=== PATIENT | male | born 1995 | race Caucasian/White ===

== ENCOUNTER 2017-12-16 15:35 | Emergency (ER) | payer OTHER ==
[2017-12-16 15:39] VITALS: RESP 18
[2017-12-16] MEDS ORDERED: ONDANSETRON ODT 4 MG TAB PO STA (17:14)
--- NOTE | 2017-12-16 18:06 | ED ---
General Adult HPI - General Chief complaint: Chest Pain Stated complaint: chest pain Time Seen by Provider: 12/16/17 17:13 Source: patient, RN notes reviewed, old records reviewed Mode of arrival: ambulatory Limitations: no limitations - History of Present Illness Initial comments: This is a 42-year-old male the ER for evasive chest pain. Patient has no medical history no significant family history. Patient states he has chest pain is substernal, started today has been episodic, worsening takes a deep breath, no significant worsening symptoms palpate his chest. No significant shortness of breath no diaphoresis. Patient is a smoker, no difficulty breathing again no mild cough. Patient had a little bit of nausea, but a few a today without difficulty - Related Data Home Medications Medication Instructions Recorded Confirmed No Known Home Medications 12/16/17 12/16/17 Allergies Allergy/AdvReac Type Severity Reaction Status Date / Time surgical steel Allergy Rash/Hives Uncoded 12/16/17 17:15 Review of Systems ROS Statement: Those systems with pertinent positive or pertinent negative responses have been documented in the HPI. ROS Other: All systems not noted in ROS Statement are negative. Past Medical History Past Medical History: No Reported History History of Any Multi-Drug Resistant Organisms: None Reported Past Surgical History: No Surgical Hx Reported Past Psychological History: No Psychological Hx Reported Smoking Status: Current every day smoker Past Alcohol Use History: Occasional Past Drug Use History: None Reported General Exam Limitations: no limitations General appearance: alert, in no apparent distress Head exam: Present: atraumatic, normocephalic, normal inspection Eye exam: Present: normal appearance, PERRL, EOMI. Absent: scleral icterus, conjunctival injection, periorbital swelling ENT exam: Present: normal exam, mucous membranes moist Neck exam: Present: normal inspection. Absent: tenderness, meningismus, lymphadenopathy Respiratory exam: Present: normal lung sounds bilaterally. Absent: respiratory distress, wheezes, rales, rhonchi, stridor Cardiovascular Exam: Present: regular rate, normal rhythm, normal heart sounds. Absent: systolic murmur, diastolic murmur, rubs, gallop, clicks GI/Abdominal exam: Present: soft, normal bowel sounds. Absent: distended, tenderness, guarding, rebound, rigid Extremities exam: Present: normal inspection, full ROM, normal capillary refill. Absent: tenderness, pedal edema, joint swelling, calf tenderness Back exam: Present: normal inspection Neurological exam: Present: alert, oriented X3, CN II-XII intact Psychiatric exam: Present: normal affect, normal mood Skin exam: Present: warm, dry, intact, normal color. Absent: rash Course Vital Signs 12/16/17 15:37 Temperature 98.4 F Pulse Rate 76 Respiratory 18 Rate Blood Pressure 134/77 O2 Sat by Pulse 98 Oximetry EKG Findings - EKG Comments: EKG Findings:: EKG shows sinus rhythm rate of 70, IA 160, QRS 90, QTc 412 Medical Decision Making - Medical Decision Making 22 male the ER for evaluation of chest pain. Nonspecific chest pain EKG chest x -ray negative. Patient can be discharged home, no acute distress vital signs are normal and stable - Radiology Data Radiology results: report reviewed (Chest x-rays negative for acute disease), image reviewed Disposition Clinical Impression: Chest pain Disposition: HOME SELF-CARE Condition: Good Instructions: Chest Pain (ED) Is patient prescribed a controlled substance at d/c from ED?: No Referrals: None,Stated [Primary Care Provider] - 1-2 days
--- NOTE | 2017-12-16 18:18 | XR ---
EXAMINATION TYPE: XR chest 2V DATE OF EXAM: 12/16/2017 COMPARISON: May 21, 2013 HISTORY: Chest pain TECHNIQUE: Frontal and lateral views of the chest are obtained. FINDINGS: Heart and mediastinum are normal. Lungs are clear. Diaphragm is normal. Bony thorax appear s normal. IMPRESSION: Normal chest. No change.
[2017-12-16 18:59] VITALS: BP 120/53; PULSE 61; TEMP 98.7
== END 2017-12-16 18:59 | disposition home or self-care (01) ==
LOC: EC 15:35
DX: R07.2 Precordial pain (principal); R11.0 Nausea; F17.200 Nicotine dependence, unspecified, uncomplicated; Z91.048 Other nonmedicinal substance allergy status
CPT/HCPCS: 71046; 93005; 99285

== ENCOUNTER 2018-06-15 12:35 | Emergency (ER) | payer OTHER ==
[2018-06-15 13:56] VITALS: BP 114/68; PULSE 56; RESP 18; TEMP 98.3
--- NOTE | 2018-06-15 15:11 | ED ---
Recheck HPI - General Chief Complaint: Recheck/Abnormal Lab/Rx Stated Complaint: Wanting a blood test Time Seen by Provider: 06/15/18 15:01 Source: patient, RN notes reviewed, old records reviewed Mode of arrival: ambulatory Limitations: no limitations - History of Present Illness Initial Comments: This is a 22-year-old male the ER for evaluation. They presents for evaluation regards to possible STI exposure. Patient otherwise denies drug or alcohol abuse. No IV drug abuse. No anal sex. MD Complaint: other (concern for Hepatitis Exposure) -: unknown Initial Visit For: other (none) Returns Today for: other (concern for lab test) Symptoms Since Prior Visit: no new symptoms Associated Symptoms: none - Related Data Home Medications Medication Instructions Recorded Confirmed No Known Home Medications 12/16/17 12/16/17 Allergies Allergy/AdvReac Type Severity Reaction Status Date / Time No Known Allergies Allergy Verified 06/15/18 13:53 Review of Systems ROS Statement: Those systems with pertinent positive or pertinent negative responses have been documented in the HPI. ROS Other: All systems not noted in ROS Statement are negative. Past Medical History Past Medical History: No Reported History History of Any Multi-Drug Resistant Organisms: None Reported Past Surgical History: No Surgical Hx Reported Past Psychological History: No Psychological Hx Reported Smoking Status: Current every day smoker Past Alcohol Use History: Occasional Past Drug Use History: None Reported General Exam Limitations: no limitations General appearance: alert, in no apparent distress Head exam: Present: atraumatic, normocephalic, normal inspection Eye exam: Present: normal appearance, PERRL, EOMI. Absent: scleral icterus, conjunctival injection, periorbital swelling ENT exam: Present: normal exam, mucous membranes moist Neck exam: Present: normal inspection. Absent: tenderness, meningismus, lymphadenopathy Respiratory exam: Present: normal lung sounds bilaterally. Absent: respiratory distress, wheezes, rales, rhonchi, stridor Cardiovascular Exam: Present: regular rate, normal rhythm, normal heart sounds. Absent: systolic murmur, diastolic murmur, rubs, gallop, clicks GI/Abdominal exam: Present: soft, normal bowel sounds. Absent: distended, tenderness, guarding, rebound, rigid Extremities exam: Present: normal inspection, full ROM, normal capillary refill. Absent: tenderness, pedal edema, joint swelling, calf tenderness Back exam: Present: normal inspection Neurological exam: Present: alert, oriented X3, CN II-XII intact Psychiatric exam: Present: normal affect, normal mood Skin exam: Present: warm, dry, intact, normal color. Absent: rash Course Vital Signs 06/15/18 13:53 Temperature 98.3 F Pulse Rate 56 L Respiratory 18 Rate Blood Pressure 114/68 O2 Sat by Pulse 97 Oximetry - Reevaluation(s) Reevaluation #1: 06/15/18 15:09 Medical record is reviewed noncontributory Reevaluation #2: 06/15/18 15:10 Spoke with patient at length, patient understands possibilities and treatment plan. Medical Decision Making - Medical Decision Making 22-year-old male for STD STI exposure. Patient will have extensive STI evaluation and can be discharged home awaiting follow-up Disposition Clinical Impression: STD exposure Disposition: HOME SELF-CARE Condition: Good Instructions: Hepatitis C (ED) Is patient prescribed a controlled substance at d/c from ED?: No Referrals: None,Stated [Primary Care Provider] - 1-2 days
[2018-06-15 16:29] LABS: Appearance,Urine Clear (Clear); Bilirubin,Urine Negative (Negative); Blood,Urine Negative (Negative); Color,Urine Yellow; Glucose,Urine (UA) Negative (Negative); Ketones,Urine Negative (Negative); Leukocyte Esterase,Urine Moderate (Negative); Mucus,Urine Few /hpf; Nitrite,Urine Negative (Negative); PH, Urine 6.5 (5.0-8.0); Protein,Urine 1+ (Negative); RBC,Urine 3 /hpf (0-5); Specific Gravity,Urine 1.025 (1.001-1.035); Squamous Epithelial Cell,Urine <1 /hpf (0-4); WBC,Urine 8 /hpf (0-5)
[2018-06-15 16:31] LABS: Hepatitis A AB IgM Index 0.01; Hepatitis A Antibody IgM NEGATIVE
[2018-06-16 03:55] LABS: Hepatitis B Core IgM Non-Reactive (Non-Reactive)
[2018-06-17 13:20] LABS: C. trachomatis,PCR Negative (Neg,Equiv); Chlamydia trachomatis Source Urine; N. gonorrhoeae,PCR Negative (Neg,Equiv); Neisseria Source Urine
== END 2018-06-15 16:12 | disposition home or self-care (01) ==
LOC: EC 12:35
DX: Z20.2 Contact with and (suspected) exposure to infections with a predominantly sexual mode of transmission (principal); Z20.5 Contact with and (suspected) exposure to viral hepatitis; F17.200 Nicotine dependence, unspecified, uncomplicated
CPT/HCPCS: 36415; 80074; 81001; 87086; 87491; 87591; 99283

== ENCOUNTER 2018-07-23 15:41 | Emergency (ER) | payer OTHER ==
[2018-07-23 15:45] VITALS: BP 109/61; PULSE 96; RESP 18; TEMP 98.3
[2018-07-23] MEDS ORDERED: KETOROLAC 60 MG/2 ML VIAL IM STA (16:10)
--- NOTE | 2018-07-23 16:19 | ED ---
General Adult HPI - General Chief complaint: Back Pain/Injury Stated complaint: Back pain Time Seen by Provider: 07/23/18 15:48 Source: patient, RN notes reviewed, old records reviewed Mode of arrival: ambulatory Limitations: no limitations - History of Present Illness Initial comments: 22-year-old male patient passed no history of chronic lumbar back pain presents ED with left paralumbar back pain. Patient states that he was lifting heavy trash at work yesterday, this morning with left paralumbar back pain. She denies any falls or trauma. Patient states that it feels muscular skeletal. Patient states he has had this multiple times in the past before. Patient denies any other symptoms. Patient denies loss of bowel or bladder control, numbness tingling, saddle anesthesia, lower extremity weakness, fever chills, IV drug use. Patient additionally denies chest pain shortness breath abdominal pain. Systemic: Pt denies fatigue, fever/chills, rash. Pt denies weakness, night sweats, weight loss. Neuro: Pt denies headache, visual disturbances, syncope or pre-syncope. HEENT: Pt denies ocular discharge or irritation, otalgia, rhinorrhea, pharyngitis or notable lymphadenopathy. Cardiopulmonary: Pt denies chest pain, SOB, heart palpitations, dyspnea on exertion. Abdominal/GI: Pt denies abdominal pain, n/v/d. : Pt denies dysuria, burning w/ urination, frequency/urgency. Denies new onset urinary or bowel incontinence. MSK: Pt denies loss of strength or function in extremities. Neuro: Pt denies new onset weakness, paresthesias. - Related Data Previous Rx's Medication Instructions Recorded Ibuprofen [Motrin] 600 mg PO Q8HR PRN #30 tab 07/13/18 Cyclobenzaprine [Flexeril] 10 mg PO TID #20 tab 07/23/18 Ibuprofen [Motrin] 600 mg PO Q6HR PRN #40 day 07/23/18 Allergies Allergy/AdvReac Type Severity Reaction Status Date / Time No Known Allergies Allergy Verified 07/23/18 15:45 Review of Systems ROS Statement: Those systems with pertinent positive or pertinent negative responses have been documented in the HPI. ROS Other: All systems not noted in ROS Statement are negative. Past Medical History Past Medical History: No Reported History History of Any Multi-Drug Resistant Organisms: None Reported Past Surgical History: No Surgical Hx Reported Past Psychological History: No Psychological Hx Reported Smoking Status: Current every day smoker Past Alcohol Use History: Occasional Past Drug Use History: None Reported General Exam - General Exam Comments Initial Comments: Constitutional: NAD, AOX3, Pt has pleasant affect. HEENT: NC/AT, trachea midline, neck supple, no lymphadenopathy. Posterior pharynx non erythematous, without exudates. External ears appear normal, without discharge. Mucous membranes moist. Eyes PERRLA, EOM intact. There is no scleral icterus. No pallor noted. Cardiopulmonary: RRR, no murmurs, rubs or gallops, no JVD noted. Lungs CTAB in anterior and posterior conrad. No peripheral edema. Abdominal exam: Abdomen soft and non-distended. Abdomen non-tender to palpation in all 4 quadrants. Bowel sounds active in LLQ. No hepatosplenomegaly. No ecchymosis Neuro: CN II-XII grossly intact. No nuchal rigidity. MSK: Left paralumbar spine mildly tender to palpation. Left straight leg raise positive. No midline cervical thoracic or lumbar tenderness to palpation. Psoas and quadriceps strength 5 out of 5 bilaterally. Patellar and Achilles reflex 2 out of 4 bilaterally. Distal pulses intact. No posterior calf tenderness bilaterally, homans sign negative bilaterally. Posterior tibialis and radial pulse +2 bilaterally. Sensation intact in upper and lower extremities. Full active ROM in upper and lower extremities, 5/5 stregnth. Limitations: no limitations Course Vital Signs 07/23/18 15:42 Temperature 98.3 F Pulse Rate 96 Respiratory 18 Rate Blood Pressure 109/61 O2 Sat by Pulse 100 Oximetry Medical Decision Making - Medical Decision Making 22-year-old male patient presents to ED with exacerbation of chronic lumbar back pain after lifting heavy trash yesterday. Patient denies any falls or trauma. Patient vital signs stable. Physical exam: Left paralumbar spine mildly tender to palpation. Left straight leg raise positive. No midline cervical thoracic or lumbar tenderness to palpation. Psoas and quadriceps strength 5 out of 5 bilaterally. Patellar and Achilles reflex 2 out of 4 bilaterally. Distal pulses intact. No posterior calf tenderness bilaterally, homans sign negative bilaterally. Posterior tibialis and radial pulse +2 bilaterally. Sensation intact in upper and lower extremities. Full active ROM in upper and lower extremities, 5/5 stregnth. Shared decision making patient, pt to be treated symptomatically, imaging not indicated. Pt administered Toradol and ED. Patient to be discharged with muscle relaxers and ibuprofen. Patient to follow with primary care provider for continued evaluation of lumbar back pain. Case discussed in depth with Dr. Mariee. Patient to return to ED if new signs or symptoms develop or if condition worsens in any way. Disposition Clinical Impression: Lumbar back pain Disposition: HOME SELF-CARE Condition: Stable Instructions (If sedation given, give patient instructions): Chronic Back Pain (ED), Acute Low Back Pain (ED) Additional Instructions: Patient to adhere to previously discussed treatment plan and will take medication(s) as directed. Patient to follow up with PCP in 1-2 days. Patient to return to ED if symptoms do not improve. Prescriptions: Cyclobenzaprine [Flexeril] 10 mg PO TID #20 tab Ibuprofen [Motrin] 600 mg PO Q6HR PRN #40 day PRN Reason: Pain Is patient prescribed a controlled substance at d/c from ED?: No Referrals: None,Stated [Primary Care Provider] - 1-2 days Time of Disposition: 16:19
== END 2018-07-23 16:35 | disposition home or self-care (01) ==
LOC: EC 15:41
DX: M54.5 Low back pain (principal); F17.200 Nicotine dependence, unspecified, uncomplicated
CPT/HCPCS: 99283; 96372; J1885

== ENCOUNTER 2018-07-30 17:23 | Emergency (ER) | payer OTHER ==
[2018-07-30 17:34] VITALS: RESP 18
[2018-07-30] MEDS ORDERED: KETOROLAC 30 MG/ML 1 ML VIAL IVP STA (18:11)
[2018-07-30] MEDS ORDERED: ONDANSETRON 4 MG/2 ML VIAL IVP STA (18:11)
[2018-07-30] MEDS ORDERED: SODIUM CHLORIDE 0.9% 1,000 ML IV STA (18:11)
--- NOTE | 2018-07-30 18:14 | ED ---
Abdominal Pain HPI - General Chief Complaint: Abdominal Pain Stated Complaint: ABDOMINAL PAIN Time Seen by Provider: 07/30/18 18:01 Source: patient Mode of arrival: wheelchair Limitations: no limitations - History of Present Illness Initial Comments: 22-year-old male patient presents to the emergency department today for evaluation of right lower quadrant abdominal pain. Patient states that about a half hour ago he was walking on a sidewalk when he had a sudden intense pain to the right lower quadrant that made him want to collapse. Patient states the pain has persisted and it's been since its onset. States he is feeling nauseated with this. Denies any radiation of the pain to his back. Denies any testicular pain. Denies any constipation or diarrhea. States had a normal bowel movement this morning. Denies any fevers or chills. Denies any history of abdominal surgeries. Denies any significant past medical history other than some chronic low back pain. Patient denies any recent rash, shortness breath, chest pain, numbness, tingling, dizziness, weakness, headache, visual changes, or any other complaints. - Related Data Previous Rx's Medication Instructions Recorded Ibuprofen [Motrin] 600 mg PO Q6HR PRN #40 day 07/23/18 Allergies Allergy/AdvReac Type Severity Reaction Status Date / Time No Known Allergies Allergy Verified 07/30/18 17:43 Review of Systems ROS Statement: Those systems with pertinent positive or pertinent negative responses have been documented in the HPI. ROS Other: All systems not noted in ROS Statement are negative. Past Medical History Past Medical History: No Reported History History of Any Multi-Drug Resistant Organisms: None Reported Past Surgical History: No Surgical Hx Reported Past Psychological History: No Psychological Hx Reported Smoking Status: Current every day smoker Past Alcohol Use History: Occasional Past Drug Use History: None Reported General Exam Limitations: no limitations General appearance: alert, in no apparent distress, other (This is a well- developed, thin appearing adult male patient in no acute distress. Vital signs upon presentation are temperature 98.3F, pulse 73, respirations 18, blood pressure 122/77, pulse ox 97% on room air.) Eye exam: Present: normal appearance, PERRL, EOMI. Absent: scleral icterus, conjunctival injection, periorbital swelling ENT exam: Present: normal exam, normal oropharynx, mucous membranes moist Respiratory exam: Present: normal lung sounds bilaterally. Absent: respiratory distress, wheezes, rales, rhonchi, stridor Cardiovascular Exam: Present: regular rate, normal rhythm, normal heart sounds. Absent: systolic murmur, diastolic murmur, rubs, gallop, clicks GI/Abdominal exam: Present: soft, tenderness (Right lower quadrant and right upper quadrant tenderness), normal bowel sounds. Absent: distended, guarding, rebound, rigid Neurological exam: Present: alert, oriented X3, CN II-XII intact Psychiatric exam: Present: normal affect, normal mood Skin exam: Present: warm, dry, intact, normal color. Absent: rash Course Vital Signs 07/30/18 07/30/18 17:30 19:34 Temperature 98.3 F Pulse Rate 73 Respiratory 18 18 Rate Blood Pressure 122/77 O2 Sat by Pulse 97 Oximetry Medical Decision Making - Medical Decision Making 22-year-old male patient presents to the emergency department today for evaluation of right lower quadrant abdominal pain. Physical examination did reveal right lower quadrant tenderness and right upper quadrant tenderness. He is afebrile, vital signs stable. Labs are normal. CT abdomen and pelvis was obtained to rule out appendicitis, showed no evidence of acute intra-abdominal process. Appendix is normal. Patient be discharged home at this time to follow -up with his primary care physician for further evaluation. Return parameters were discussed in detail. He verbalizes understanding and agrees with this plan. - Lab Data Result diagrams: 07/30/18 18:25 07/30/18 18:25 Lab Results 07/30/18 07/30/18 07/30/18 Range/Units 18:25 18:25 18:25 WBC 10.4 (3.8-10.6) k/uL RBC 4.72 (4.30-5.90) m/uL Hgb 15.0 (13.0-17.5) gm/dL Hct 44.2 (39.0-53.0) % MCV 93.6 (80.0-100.0) fL MCH 31.8 (25.0-35.0) pg MCHC 34.0 (31.0-37.0) g/dL RDW 13.3 (11.5-15.5) % Plt Count 239 (150-450) k/uL Neutrophils % 70 % Lymphocytes % 17 % Monocytes % 7 % Eosinophils % 4 % Basophils % 1 % Neutrophils # 7.3 (1.3-7.7) k/uL Lymphocytes # 1.7 (1.0-4.8) k/uL Monocytes # 0.7 (0-1.0) k/uL Eosinophils # 0.4 (0-0.7) k/uL Basophils # 0.1 (0-0.2) k/uL Sodium 142 (137-145) mmol/L Potassium 4.2 (3.5-5.1) mmol/L Chloride 105 (98-107) mmol/L Carbon Dioxide 27 (22-30) mmol/L Anion Gap 10 mmol/L BUN 14 (9-20) mg/dL Creatinine 0.84 (0.66-1.25) mg/dL Est GFR (CKD-EPI)AfAm >90 (>60 ml/min/1.73 sqM) Est GFR (CKD-EPI)NonAf >90 (>60 ml/min/1.73 sqM) Glucose 121 H (74-99) mg/dL Calcium 9.9 (8.4-10.2) mg/dL Total Bilirubin 0.8 (0.2-1.3) mg/dL AST 24 (17-59) U/L ALT 32 (21-72) U/L Alkaline Phosphatase 50 (38-126) U/L Total Protein 7.7 (6.3-8.2) g/dL Albumin 5.0 (3.5-5.0) g/dL Amylase 73 (30-110) U/L Lipase 85 (23-300) U/L Urine Color Light Yellow Urine Appearance Clear (Clear) Urine pH 6.5 (5.0-8.0) Ur Specific [place] 1.008 (1.001-1.035) Urine Protein Negative (Negative) Urine Glucose (UA) Negative (Negative) Urine Ketones Negative (Negative) Urine Blood Negative (Negative) Urine Nitrite Negative (Negative) Urine Bilirubin Negative (Negative) Urine Urobilinogen <2.0 (<2.0) mg/dL Ur Leukocyte Esterase Negative (Negative) - Radiology Data Radiology results: report reviewed, image reviewed CT abdomen and pelvis was obtained with contrast. Report was reviewed in its entirety. Impression by Dr. Lazo and shows normal CT abdomen and pelvis. Appendix is normal. Disposition Clinical Impression: Abdominal pain Disposition: HOME SELF-CARE Condition: Good Instructions (If sedation given, give patient instructions): Abdominal Pain (ED ) Additional Instructions: Follow-up with the primary care physician for recheck in 1-2 days. Return to the emergency department immediately for any new, worsening, or concerning symptoms. Is patient prescribed a controlled substance at d/c from ED?: No Referrals: None,Stated [Primary Care Provider] - 1-2 days Time of Disposition: 21:07
[2018-07-30 18:47] LABS: Basophils # (A) 0.1 k/uL (0-0.2); Basophils % (A) 1 %; Eosinophils # (A) 0.4 k/uL (0-0.7); Eosinophils % (A) 4 %; HCT 44.2 % (39.0-53.0); Lymphocytes # (A) 1.7 k/uL (1.0-4.8); Lymphocytes % (A) 17 %; MCH 31.8 pg (25.0-35.0); MCV 93.6 fL (80.0-100.0); Mean Platelet Volume 7.4; Monocytes # (A) 0.7 k/uL (0-1.0); Monocytes % (A) 7 %; Neutrophils # (A) 7.3 k/uL (1.3-7.7); Neutrophils % (A) 70 %; Platelet Count 239 k/uL (150-450); RBC 4.72 m/uL (4.30-5.90); RDW 13.3 % (11.5-15.5); WBC 10.4 k/uL (3.8-10.6)
[2018-07-30 18:49] LABS: Appearance,Urine Clear (Clear); Bilirubin,Urine Negative (Negative); Blood,Urine Negative (Negative); Color,Urine Light Yellow; Glucose,Urine (UA) Negative (Negative); Ketones,Urine Negative (Negative); Leukocyte Esterase,Urine Negative (Negative); Nitrite,Urine Negative (Negative); PH, Urine 6.5 (5.0-8.0); Protein,Urine Negative (Negative); Specific Gravity,Urine 1.008 (1.001-1.035); Urobilinogen,Urine <2.0 mg/dL (<2.0)
[2018-07-30 18:57] LABS: ALT 32 U/L (21-72); AST 24 U/L (17-59); Alkaline Phosphatase 50 U/L (38-126); Amylase 73 U/L (30-110); Anion Gap 10 mmol/L; Blood Urea Nitrogen 14 mg/dL (9-20); Calcium 9.9 mg/dL (8.4-10.2); Carbon Dioxide 27 mmol/L (22-30); Chloride 105 mmol/L (98-107); Glucose 121 mg/dL (74-99); Lipase 85 U/L (23-300); Potassium 4.2 mmol/L (3.5-5.1); Sodium 142 mmol/L (137-145); Total Bilirubin 0.8 mg/dL (0.2-1.3); Total Protein 7.7 g/dL (6.3-8.2)
--- NOTE | 2018-07-30 20:44 | CT ---
EXAMINATION TYPE: CT abdomen pelvis w con DATE OF EXAM: 07/30/2018 COMPARISON: None INDICATION: Right lower quadrant abdominal pain. DLP: 533.3 mGycm, Automated exposure control for dose reduction was used. CONTRAST: 100ml mL of Isovue 300. Study performed without Oral Contrast TECHNIQUE: Axial images were obtained from above the diaphragm to the pubic rami in the axial plane a t 5 mm thick sections. Reconstructed images are reviewed on the computer in the coronal plane. FINDINGS: Limited CT sections are obtained the lung bases. The lung bases are clear. CT ABDOMEN: Liver: Normal Spleen: Normal Pancreas: Normal Adrenal glands: The adrenal glands are normal. Gallbladder: Normal Kidneys: No masses are evident. No hydronephrosis is present. No cysts are present. Delayed images were obtained through the kidneys, which remain unremarkable. Aorta: None Inferior vena cava: Normal. CT PELVIS: Loops of bowel within the abdomen and pelvis are normal. There are loops of bowel which are incom pletely distended or lack oral contrast limiting their evaluation. Appendix: Normal as visualized. No suspicious inflammatory changes are evident. Urinary bladder: Normal. Genitourinary structures: Prostate is normal Osseous structures: No suspicious lytic or sclerotic lesions. IMPRESSIONS: 1. Normal CT abdomen pelvis. 2. Appendix is normal.
[2018-07-30 21:21] VITALS: BP 106/63; PULSE 58; TEMP 98.5
== END 2018-07-30 21:15 | disposition home or self-care (01) ==
LOC: EC 17:23
DX: R10.31 Right lower quadrant pain (principal); R10.813 Right lower quadrant abdominal tenderness; R10.811 Right upper quadrant abdominal tenderness; M54.5 Low back pain; G89.29 Other chronic pain; F17.200 Nicotine dependence, unspecified, uncomplicated
CPT/HCPCS: 36415; 80053; 82150; 83690; 85025; 81003; 74177; 99284; 96374; 96375; 96361; J2405; J1885; Q9967

== ENCOUNTER 2019-01-14 17:37 | Emergency (ER) | payer OTHER ==
[2019-01-14 17:40] VITALS: BP 134/62; PULSE 51; RESP 18; TEMP 98.7
--- NOTE | 2019-01-14 18:34 | ED ---
General Adult HPI - General Chief complaint: Abdominal Pain Stated complaint: Chest pain, shoulder pain Time Seen by Provider: 01/14/19 18:06 Source: EMS, RN notes reviewed, old records reviewed Mode of arrival: EMS Limitations: no limitations - History of Present Illness Initial comments: 23-year-old male patient, no pertinent past medical history presents to ED with chief complaint of left lateral rib pain and left shoulder pain. Patient reports this began today at approximately 3:30 PM and lasted approximately one hour. Patient denies any recent falls or trauma. 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 Denies any shortness of breath. Patient reports that the area is tender to palpation. Patient denies any personal cardiac history. Denies any recent travel, use of exogenous hormones, leg pain, recent surgery, active cancer. Patient reports that he is currently asymptomatic at this time. Denies other complaints. Denies any associated symptoms including diaphoresis. Systemic: Pt denies fatigue, fever/chills, rash. Pt denies weakness, night sweats, weight loss. Neuro: Pt denies headache, visual disturbances, syncope or pre-syncope. HEENT: Pt denies ocular discharge or irritation, otalgia, rhinorrhea, pharyngitis or notable lymphadenopathy. Cardiopulmonary: Pt denies SOB, heart palpitations, dyspnea on exertion. Abdominal/GI: Pt denies abdominal pain, n/v/d. : Pt denies dysuria, burning w/ urination, frequency/urgency. Denies new onset urinary or bowel incontinence. MSK: Pt denies myalgia, loss of strength or function in extremities. Neuro: Pt denies new onset weakness, paresthesias. - Related Data Previous Rx's Medication Instructions Recorded Ibuprofen [Motrin] 600 mg PO Q6HR PRN #40 day 07/23/18 Allergies Allergy/AdvReac Type Severity Reaction Status Date / Time No Known Allergies Allergy Verified 01/14/19 17:40 Review of Systems ROS Statement: Those systems with pertinent positive or pertinent negative responses have been documented in the HPI. ROS Other: All systems not noted in ROS Statement are negative. Past Medical History Past Medical History: No Reported History History of Any Multi-Drug Resistant Organisms: None Reported Past Surgical History: No Surgical Hx Reported Past Psychological History: No Psychological Hx Reported Smoking Status: Current every day smoker Past Alcohol Use History: Occasional Past Drug Use History: None Reported General Exam - General Exam Comments Initial Comments: Constitutional: NAD, AOX3, Pt has pleasant affect. HEENT: NC/AT, trachea midline, neck supple, no lymphadenopathy. Posterior pharynx non erythematous, without exudates. External ears appear normal, without discharge. Mucous membranes moist. Eyes PERRLA, EOM intact. There is no scleral icterus. No pallor noted. Cardiopulmonary: RRR, no murmurs, rubs or gallops, no JVD noted. Lungs CTAB in anterior and posterior conrad. No peripheral edema. Chest pain reproducible upon palpation. Abdominal exam: Abdomen soft and non-distended. Abdomen non-tender to palpation in all 4 quadrants. Bowel sounds active in LLQ. No hepatosplenomegaly. No ecchymosis Neuro: CN II-XII grossly intact. No nuchal rigidity. No raccon eyes, no sanchez sign, no hemotympanum. No cervical spinal tenderness. MSK: No posterior calf tenderness bilaterally, homans sign negative bilaterally. Posterior tibialis and radial pulse +2 bilaterally. Sensation intact in upper and lower extremities. Full active ROM in upper and lower extremities, 5/5 stregnth. Limitations: no limitations Course Vital Signs 01/14/19 17:38 Temperature 98.7 F Pulse Rate 51 L Respiratory 18 Rate Blood Pressure 134/62 O2 Sat by Pulse 100 Oximetry Medical Decision Making - Medical Decision Making 23-year-old male patient comes to ED with left rib pain, left shoulder pain. Patient worsens began today lasted for 1 hour, cc feeling better now. Patient does report that he was recently bailing hay which is very strenuous activity. Patient states that the pain is reproducible on palpation. Denies any other complaints at this time. Physical exam displayed pain to be reproducible. Laboratory investigations were not impressive. Troponin negative. UA negative. EKG not concerning for acute ischemia. Chest x-ray displayed no acute process. Patient is PERC negative. Patient pain atypical nature, will be discharged, follow up with primary care provider tomorrow, return to ER if condition worsens. Case discussed with Dr. Manuel. - Lab Data Result diagrams: 01/14/19 18:54 01/14/19 18:54 Lab Results 01/14/19 01/14/19 01/14/19 Range/Units 18:52 18:54 18:54 WBC 7.6 (3.8-10.6) k/uL RBC 4.23 L (4.30-5.90) m/uL Hgb 13.4 (13.0-17.5) gm/dL Hct 39.3 (39.0-53.0) % MCV 93.0 (80.0-100.0) fL MCH 31.7 (25.0-35.0) pg MCHC 34.1 (31.0-37.0) g/dL RDW 13.3 (11.5-15.5) % Plt Count 216 (150-450) k/uL Sodium 139 (137-145) mmol/L Potassium 4.0 (3.5-5.1) mmol/L Chloride 107 (98-107) mmol/L Carbon Dioxide 25 (22-30) mmol/L Anion Gap 7 mmol/L BUN 8 L (9-20) mg/dL Creatinine 0.87 (0.66-1.25) mg/dL Est GFR (CKD-EPI)AfAm >90 (>60 ml/min/1.73 sqM) Est GFR (CKD-EPI)NonAf >90 (>60 ml/min/1.73 sqM) Glucose 82 (74-99) mg/dL Calcium 8.8 (8.4-10.2) mg/dL Total Bilirubin 0.9 (0.2-1.3) mg/dL AST 28 (17-59) U/L ALT 20 L (21-72) U/L Alkaline Phosphatase 41 (38-126) U/L Troponin I (0.000-0.034) ng/mL Total Protein 5.5 L (6.3-8.2) g/dL Albumin 3.6 (3.5-5.0) g/dL Urine Color Light Yellow Urine Appearance Clear (Clear) Urine pH 7.0 (5.0-8.0) Ur Specific [place] 1.004 (1.001-1.035) Urine Protein Negative (Negative) Urine Glucose (UA) Negative (Negative) Urine Ketones Negative (Negative) Urine Blood Negative (Negative) Urine Nitrite Negative (Negative) Urine Bilirubin Negative (Negative) Urine Urobilinogen <2.0 (<2.0) mg/dL Ur Leukocyte Esterase Negative (Negative) 01/14/19 Range/Units 18:54 WBC (3.8-10.6) k/uL RBC (4.30-5.90) m/uL Hgb (13.0-17.5) gm/dL Hct (39.0-53.0) % MCV (80.0-100.0) fL MCH (25.0-35.0) pg MCHC (31.0-37.0) g/dL RDW (11.5-15.5) % Plt Count (150-450) k/uL Sodium (137-145) mmol/L Potassium (3.5-5.1) mmol/L Chloride (98-107) mmol/L Carbon Dioxide (22-30) mmol/L Anion Gap mmol/L BUN (9-20) mg/dL Creatinine (0.66-1.25) mg/dL Est GFR (CKD-EPI)AfAm (>60 ml/min/1.73 sqM) Est GFR (CKD-EPI)NonAf (>60 ml/min/1.73 sqM) Glucose (74-99) mg/dL Calcium (8.4-10.2) mg/dL Total Bilirubin (0.2-1.3) mg/dL AST (17-59) U/L ALT (21-72) U/L Alkaline Phosphatase (38-126) U/L Troponin I <0.012 (0.000-0.034) ng/mL Total Protein (6.3-8.2) g/dL Albumin (3.5-5.0) g/dL Urine Color Urine Appearance (Clear) Urine pH (5.0-8.0) Ur Specific [place] (1.001-1.035) Urine Protein (Negative) Urine Glucose (UA) (Negative) Urine Ketones (Negative) Urine Blood (Negative) Urine Nitrite (Negative) Urine Bilirubin (Negative) Urine Urobilinogen (<2.0) mg/dL Ur Leukocyte Esterase (Negative) - EKG Data -: EKG Interpreted by Me (and Dr. Manuel. ) EKG Comments: Ventricular rate 55,. And for 174, QRS 90, QT/QTc 432/413. Sinus bradycardia with sinus arrhythmia. Otherwise normal EKG, no concern for acute ischemia. Disposition Clinical Impression: Myalgia, Atypical chest pain Disposition: HOME SELF-CARE Condition: Stable Instructions (If sedation given, give patient instructions): Musculoskeletal Pain (ED), Chest Pain (ED) Additional Instructions: Patient to adhere to previously discussed treatment plan and will take medication(s) as directed. Patient to follow up with PCP in 1-2 days. Patient to return to ED if symptoms do not improve. Follow-up with primary care prior tomorrow. Return to ER if condition worsens. Is patient prescribed a controlled substance at d/c from ED?: No Referrals: None,Stated [Primary Care Provider] - 1-2 days [facility] ang [NON-STAFF] - 1-2 days
[2019-01-14 19:09] LABS: Appearance,Urine Clear (Clear); Bilirubin,Urine Negative (Negative); Blood,Urine Negative (Negative); Color,Urine Light Yellow; Glucose,Urine (UA) Negative (Negative); Ketones,Urine Negative (Negative); Leukocyte Esterase,Urine Negative (Negative); Nitrite,Urine Negative (Negative); Protein,Urine Negative (Negative); Specific Gravity,Urine 1.004 (1.001-1.035); Urobilinogen,Urine <2.0 mg/dL (<2.0)
[2019-01-14 19:11] LABS: ALT 20 U/L (21-72); AST 28 U/L (17-59); African American GFR (CKD) >90 (>60 ml/min/1.73 sqM); Albumin 3.6 g/dL (3.5-5.0); Alkaline Phosphatase 41 U/L (38-126); Anion Gap 7 mmol/L; Blood Urea Nitrogen 8 mg/dL (9-20); Calcium 8.8 mg/dL (8.4-10.2); Carbon Dioxide 25 mmol/L (22-30); Chloride 107 mmol/L (98-107); Glucose 82 mg/dL (74-99); Sodium 139 mmol/L (137-145); Total Bilirubin 0.9 mg/dL (0.2-1.3); Total Protein 5.5 g/dL (6.3-8.2)
--- NOTE | 2019-01-14 19:20 | XR ---
EXAMINATION TYPE: XR chest 2V DATE OF EXAM: 01/14/2019 COMPARISON: Prior chest x-ray 12/16/2017 HISTORY: Left flank and shoulder pain TECHNIQUE: Frontal and lateral views of the chest are obtained. FINDINGS: There is no focal air space opacity, pleural effusion, or pneumothorax seen. The cardiac silhouette size is within normal limits. The osseous structures are intact. IMPRESSION: No acute cardiopulmonary process.
[2019-01-14 19:21] LABS: HCT 39.3 % (39.0-53.0); HGB 13.4 gm/dL (13.0-17.5); MCH 31.7 pg (25.0-35.0); MCHC 34.1 g/dL (31.0-37.0); Mean Platelet Volume 7.5; Platelet Count 216 k/uL (150-450); RBC 4.23 m/uL (4.30-5.90); RDW 13.3 % (11.5-15.5); WBC 7.6 k/uL (3.8-10.6)
== END 2019-01-14 20:03 | disposition home or self-care (01) ==
LOC: EC 17:37
DX: M79.10 Myalgia, unspecified site (principal); R07.89 Other chest pain; M25.512 Pain in left shoulder; R10.12 Left upper quadrant pain; F17.200 Nicotine dependence, unspecified, uncomplicated
CPT/HCPCS: 36415; 71046; 80053; 81003; 84484; 85027; 93005; 99285